=== PATIENT | male | born 1935 | race African-American/Black ===

== ENCOUNTER 2018-05-10 08:47 | Emergency (ER) | payer MEDICARE, MEDICAID ==
[~2018-05-10] VITALS: Ht 165.1 cm; Wt 67.4 kg
--- NOTE | 2018-05-10 08:50 | NUR ---
MD CALLEJAS AT BEDSIDE
--- NOTE | 2018-05-10 08:52 | NUR ---
[facility] DT EPISODE OF SHAKING-- PATIENT IS AWAKE AND ALERT WITH CONFUSION. PT WITH HX OF DEMENTIA. PATIENT NOT IN DISTRESS. SKIN IS WARM TO TOUCH AND NON DIAPHORETIC. PATIENT IS AFEBRILE. VSS
[2018-05-10 09:28] VITALS: BP 124/80
--- NOTE | 2018-05-10 09:29 | NUR ---
Patient discharged to home in stable condition. Written and verbal after care instructions given. Patient verbalizes understanding of instruction.
== END 2018-05-10 09:30 | disposition home or self-care (01) ==
LOC: ER 08:50
DX: G31.83 Neurocognitive disorder with Lewy bodies (principal); F02.80 Dementia in other diseases classified elsewhere, unspecified severity, without behavioral disturbance, psychotic disturbance, mood disturbance, and anxiety; E03.9 Hypothyroidism, unspecified; Z88.1 Allergy status to other antibiotic agents; Z88.8 Allergy status to other drugs, medicaments and biological substances
CPT/HCPCS: 99283; A4606